=== PATIENT | male | born 1950 | race Caucasian/White ===

== ENCOUNTER 2025-01-02 18:52 | Emergency (ER) | payer MEDICARE, SELFPAY ==
[2025-01-02] VITALS (8 sets, daily range): BP systolic 121–184; BP diastolic 63–99; PULSE 60–89; RESP 14–18; TEMP 34.5–36.4; O2SAT 95–100; BMI 16.2
--- NOTE | 2025-01-02 19:00 | XRR_ITS ---
PROCEDURE INFORMATION: Exam: XR Chest Exam date and time: 01/02/2025 7:47 PM Age: 75 years old Clinical indication: Pain; Chest pressure; Additional info: Chest pain TECHNIQUE: Imaging protocol: Radiologic exam of the chest. Views: 1 view. COMPARISON: No relevant prior studies available. FINDINGS: Lungs: Lungs are hyperinflated. No focal consolidation. Pleural spaces: Unremarkable. No pleural effusion. No pneumothorax. Heart/Mediastinum: Unremarkable. No cardiomegaly. Bones/joints: Unremarkable. XR/XR chest 1V portable [id number] IMPRESSION: No acute cardiopulmonary findings.
--- NOTE | 2025-01-02 19:07 | CTR_ITS ---
PROCEDURE INFORMATION: Exam: CT Head Without Contrast Exam date and time: 01/02/2025 8:44 PM Age: 75 years old Clinical indication: Altered mental status/memory loss; Additional info: Mental status change TECHNIQUE: Imaging protocol: Computed tomography of the head without contrast. Radiation optimization: All CT scans at this facility use at least one of these dose optimization techniques: automated exposure control; mA and/or kV adjustment per patient size (includes targeted exams where dose is matched to clinical indication); or iterative reconstruction. COMPARISON: No relevant prior studies available. RADIATION DOSE METRICS: Total DLP (mGy-cm): 919.5 FINDINGS: Brain: Parenchymal volume loss with scattered white matter hyperintensities consistent with chronic microvascular ischemic changes. No acute intracranial hemorrhage, mass effect or midline shift. Cerebral ventricles: No ventriculomegaly. Paranasal sinuses: Visualized sinuses are unremarkable. No fluid levels. Mastoid air cells: Visualized mastoid air cells are well aerated. Bones: Unremarkable. No acute fracture. Soft tissues: Unremarkable. CT/CT head wo con* [id number] IMPRESSION: No acute intracranial abnormality.
--- NOTE | 2025-01-02 19:41 | ECG_ITS ---
[facility] [employer] Test Date: 2025-01-02 Pat Name: Gilson Marina Department: Room: Gender: Male Deck Scaler: : 1950 Requested By: Dandre Robles Order Number: [id number] Killian MD: Mady Hamilton M.D. Measurements Intervals [place] Rate: 68 P: 0 MT: 0 QRS: 75 QRSD: 112 T: 61 QT: 428 QTc: 457 Interpretive Statements Possible ATRIAL FIBRILLATION WITH ABERRANT CONDUCTION OR VENTRICULAR PREMATURE COMPLEXES MODERATE INTRAVENTRICULAR CONDUCTION DELAY [110+ ms QRS DURATION] MODERATE ST DEPRESSION [0.05+ mV ST DEPRESSION] No previous ECG available for comparison Heavy baseline artifacts; Need to repeat the study. Electronically Signed On 01-03-2025 21:47:53 CDT by Mady Hamilton M.D. [id number]
[2025-01-02 19:49] LABS: ABG PH Result 7.37 (7.35-7.45); Arterial Blood Gas Hematocrit 47.9 % (42-52); Base Excess ABG -1.1 mmol/L (-2.0-2.0); Blood Gas Allen Test Pos; Blood Gas Operator Identificat glc; Blood Gas Sample Site Radial, left; Blood Gas Sample Type Arterial; HCO3 ABG 24.2 mmol/L (22-26); Oxygen Device ROOM AIR; PO2 FiO2 Ratio Arterial Blood 471
[2025-01-02 19:54] LABS: Basophils # 0.1 10^3/uL (0.0-0.1); Basophils % 0.4 %; Eosinophils # 0.1 10^3/uL (0.0-0.8); Eosinophils % 0.7 %; Hematocrit 52.6 % (37-53); Lymphocytes # 1.2 10^3/uL (0.8-4.8); Lymphocytes % 8.2 %; Mean Corpuscular Hemoglobin 29.2 pg (27-33); Mean Corpuscular Volume 94.3 fl (82-101); Mean Platelet Volume 10.3 fL (7.4-10.4); Monocytes # 0.6 10^3/uL (0.2-0.9); Neutrophils # 12.82 10^3/uL (1.8-7.7); Neutrophils % 85.9 %; Nucleated Red Blood Cells % 0 %; Platelet Count 275 10^3/cmm (157-399); Red Blood Count 5.58 10^6/uL (3.85-5.65); Red Cell Distribution Width 13.4 % (12.1-15.1); White Blood Count 14.93 10^3/uL (3.29-11.43)
[2025-01-02 20:07] LABS: Troponin(5th) Baseline 17 ng/L (0-15)
[2025-01-02 20:13] LABS: Ammonia 67 umol/L (16-60)
[2025-01-02 20:15] LABS: Alanine Aminotransferase 16 U/L (0-41); Albumin Level 4.4 g/dL (3.5-5.2); Alkaline Phosphatase 132 U/L (40-130); Blood Urea Nitrogen 16 mg/dL (8-23); Calcium 9.8 mg/dL (8.5-10.5); Carbon Dioxide 21 mmol/L (22-29); Chloride 101 mmol/L (98-107); Creatinine Clr Calc Pharmacy 38.1142; Globulin 3.8 g/dL (1.3-4.6); Glucose 154 mg/dL (65-115); Osmolality Calculated 294 mOsm/kg (285-295); Sodium 140 mmol/L (136-145); Total Bilirubin 0.9 mg/dL (0.15-1.2); Total Protein 8.2 g/dL (6.6-8.7)
[2025-01-02 20:17] LABS: Anion Gap 20.9 (5-19); Aspartate Amino Transferase 27 U/L (0-40)
[2025-01-02 20:19] LABS: Potassium 2.9 mmol/L (3.5-5.1)
[2025-01-02 20:26] LABS: Lactic Sepsis W/Reflex 3.4 mmol/L (0.5-2.2)
[2025-01-02] MEDS: ondansetron 2 mg/ML SDV 2 mL 4 MG IVP (20:30)
--- NOTE | 2025-01-02 20:49 | W.ED.AMS ---
HPI - Altered Mental Status General: Chief Complaint: Altered Mental Status Stated Complaint: Heat Stroke Time Seen by Provider: 01/02/25 19:00 History of Present Illness: Patient is a 75-year-old male brought by ambulance for altered mental status, hypotension, loss of bowel and bladder continence. History provided by people he met yesterday is that he was driving across [place] from [place] to get back to [place] where he lives when his car broke down. Locals took him in and assisted him getting a new starter and getting replaced today. Apparently the patient's manufacturers representative from [place] drove all the way to the patient's location to bring him his medicine including what appears to be a very old bottle of lisinopril and an empty bottle of buprenorphine 2 mg tablets. Shortly after the manufacturers representative visited, patient became altered, near syncopal, and lost control of his bladder and bowel and was unable to get up. EMS was called and they found him to be profoundly hypotensive and altered. He was brought to the emergency department Kay IV fluids. On arrival he is hypothermic at 94.1 degrees. He tells me that he used to have a problem with oxycodone and never wants to use opioids again. I asked him if he felt that the medication he took could have caused his symptoms and he thinks this is possible. He thinks he might have taken too much lisinopril. The bottle of lisinopril shows 30 mg tablets and he is unsure how many he took. There are multicolored pills within the bottle and I am not certain that all of them are lisinopril. He is uncertain how many buprenorphine 2 mg tablets he took but the bottle is empty now. He has not received Narcan. The buprenorphine tablets do not include naloxone. Related Data Allergies Allergy/AdvReac Type Severity Reaction Status Date / Time celecoxib (From Celebrex) Allergy Unknown Verified 01/02/25 19:02 duloxetine (From Cymbalta) Allergy Unknown Verified 01/02/25 19:02 Physical Exam Const: COMMON NORMALS: alert OTHER: No distress HENMT: COMMON NORMALS: normocephalic and atraumatic HEAD & SCALP: normocephalic and atraumatic OTHER: Moist mucous membranes Eye: COMMON NORMALS: Equal, round and reactive pupils present, EOMs intact bilaterally and no scleral icterus PUPIL: Yes Equal, round and reactive pupils present Resp: COMMON NORMALS: normal respiratory effort and No retractions Cardio: COMMON NORMALS: regular rate and No murmurs present (Cardio) RATE: regular rate OTHER: Irregular rhythm, no murmur. GI: COMMON NORMALS: Normal to inspection, nondistended, normoactive bowel sounds present, Soft to palpation and non-tender PALPATION: Yes Soft to palpation Neuro: SENSORIUM/ORIENTATION: Yes alert OTHER: Profoundly weak, no lateralizing deficits of strength or sensation to imply acute stroke. Difficult speech at baseline due to old surgery of the jaw and edentulous status Psych: OTHER: No obvious hallucinations, delusions, HI or SI. Skin: COMMON NORMALS: no rashes or lesions noted GENERAL SKIN EXAM: no rashes or lesions noted Course Vital Signs: Vital signs: Vital Signs Temperature 97.5 F L 01/02/25 20:29 Pulse Rate 81 01/03/25 02:00 Respiratory Rate 18 01/03/25 02:00 Blood Pressure 184/90 01/03/25 02:00 Pulse Oximetry 97 01/03/25 02:00 Oxygen Delivery Me thod Room Air 01/03/25 02:00 MDM - Altered Mental Status Medical Decision Making In summary, patient is a 75-year-old male who appears to have accidentally overdosed on either his lisinopril blood pressure medication or buprenorphine or maybe both. He was found minimally responsive, hypotensive, after losing control of his bowel and bladder. With resuscitation and time, blood pressure has normalized. Lactic acid was initially elevated and I think this is due to global hypoperfusion which was also causing him altered mental status on arrival. He did not receive Narcan. His buprenorphine tablets did not have naloxone in them and the bottle was empty on arrival, raising suspicion that he may have taken what ever was left in the bottle. He stated at one time that he used to have a problem with oxycodone tablets, and that he never wanted to go back to that lifestyle again. Regardless, he was observed overnight With improvement of mental status and vital sigs. I advised that he meet with his primary care physician before resuming any of his medications. He will be discharged in stable and improved condition with follow-up to primary care. Lab Data 01/02/25 19:35 01/02/25 19:35 Radiology Impressions Chest X-Ray 01/02/25 19:00 IMPRESSION: No acute cardiopulmonary findings. Head CT 01/02/25 19:07 IMPRESSION: No acute intracranial abnormality. Laboratory Results WBC 14.93 10^3/uL (3.29-11.43) H 01/02/25 19:35 RBC 5.58 10^6/uL (3.85-5.65) 01/02/25 19:35 Hgb 16.30 g/dL (11.27-16.99) 01/02/25 19:35 Hct 52.6 % (37-53) 01/02/25 19:35 MCV 94.3 fl (82-101) 01/02/25 19:35 MCH 29.2 pg (27-33) 01/02/25 19:35 MCHC 31.0 g/dL (30-55) 01/02/25 19:35 RDW 13.4 % (12.1-15.1) 01/02/25 19:35 Plt Count 275 10^3/cmm (157-399) 01/02/25 19:35 MPV 10.3 fL (7.4-10.4) 01/02/25 19:35 Neut % (Auto) 85.9 % 01/02/25 19:35 Lymph % (Auto) 8.2 % 01/02/25 19:35 [place] % (Auto) 4.0 % 01/02/25 19:35 Eos % (Auto) 0.7 % 01/02/25 19:35 Baso % (Auto) 0.4 % 01/02/25 19:35 Neut # (Auto) 12.82 10^3/uL (1.8-7.7) H 01/02/25 19:35 Lymph # (Auto) 1.2 10^3/uL (0.8-4.8) 01/02/25 19:35 [place] # (Auto) 0.6 10^3/uL (0.2-0.9) 01/02/25 19:35 Eos # (Auto) 0.1 10^3/uL (0.0-0.8) 01/02/25 19:35 Baso # (Auto) 0.1 10^3/uL (0.0-0.1) 01/02/25 19:35 Nucleated RBC % (auto) 0 % 01/02/25 19:35 Nucleated RBCs # 0.0 /100WBC 01/02/25 19:35 Specimen Type Arterial 01/02/25 19:37 Sample Site Radial, left 01/02/25 19:37 ABG pH 7.37 (7.35-7.45) 01/02/25 19:37 ABG pCO2 42.0 mmHg (35-45) 01/02/25 19:37 ABG pO2 99.0 mmHg (80.0-100.0) 01/02/25 19:37 ABG PO2/FiO2 Ratio 471 01/02/25 19:37 ABG HCO3 24.2 mmol/L (22-26) 01/02/25 19:37 ABG Base Excess -1.1 mmol/L (-2.0-2.0) 01/02/25 19:37 [place] Test Pos 01/02/25 19:37 Hematocrit 47.9 % (42-52) 01/02/25 19:37 O2 Delivery Device Room air 01/02/25 19:37 FiO2 21.0 % 01/02/25 19:37 Heat Treat Technician ID glc 01/02/25 19:37 Sodium 140 mmol/L (136-145) 01/02/25 19:35 Potassium 2.9 mmol/L (3.5-5.1) L 01/02/25 19:35 Chloride 101 mmol/L (98-107) 01/02/25 19:35 Carbon Dioxide 21 mmol/L (22-29) L 01/02/25 19:35 Anion Gap 20.9 (5-19) H 01/02/25 19:35 BUN 16 mg/dL (8-23) 01/02/25 19:35 Creatinine 1.2 mg/dL (0.7-1.2) 01/02/25 19:35 GFR Calculation Not Reportable 01/02/25 19:35 Glucose 154 mg/dL (65-115) H 01/02/25 19:35 Calculated Osmolality 294 mOsm/kg (285-295) 01/02/25 19:35 Lactic Acid 3.4 mmol/L (0.5-2.2) H 01/02/25 20:03 Lactic Acid (Sepsis) 1.6 mmol/L (0.5-2.2) 01/02/25 23:11 Calcium 9.8 mg/dL (8.5-10.5) 01/02/25 19:35 Total Bilirubin 0.9 mg/dL (0.15-1.2) 01/02/25 19:35 AST 27 U/L (0-40) 01/02/25 19:35 ALT 16 U/L (0-41) 01/02/25 19:35 Alkaline Phosphatase 132 U/L (40-130) H 01/02/25 19:35 Ammonia 67 umol/L (16-60) H 01/02/25 19:38 Troponin T Baseline 17 ng/L (0-15) H 01/02/25 19:35 Troponin T 120 Minute 17.30 ng/L (0-15) H 01/02/25 21:48 Delta Troponin T 0.30 ABS# (0-10) 01/02/25 21:48 Total Protein 8.2 g/dL (6.6-8.7) 01/02/25 19:35 Albumin 4.4 g/dL (3.5-5.2) 01/02/25 19:35 Globulin 3.8 g/dL (1.3-4.6) 01/02/25 19:35 Urine Color Yellow (Yellow) 01/02/25 21:00 Urine Appearance Turbid (CLEAR) A 01/02/25 21:00 Urine pH 6.5 (5-7) 01/02/25 21:00 Ur Specific [place] 1.012 (1.005-1.030) 01/02/25 21:00 Urine Protein 3+ (Negative) A 01/02/25 21:00 Urine Glucose (UA) Trace (Normal) H 01/02/25 21:00 Urine Ketones Negative (Negative) 01/02/25 21:00 Urine Blood 2+ (Negative) A 01/02/25 21:00 Urine Nitrate Negative (Negative) 01/02/25 21:00 Urine Bilirubin Negative (Negative) 01/02/25 21:00 Urine Urobilinogen 1.0 mg/dL (Negative) 01/02/25 21:00 Ur Leukocyte Esterase Trace (Negative) A 01/02/25 21:00 Urine RBC 51-100 /hpf (0-2) H 01/02/25 21:00 Urine WBC 21-50 /hpf (0-5) H 01/02/25 21:00 Ur Squamous Epith Cells 6-10 /hpf (0-5) 01/02/25 21:00 Amorphous Sediment Not Reportable 01/02/25 21:00 Urine Bacteria None seen /hpf (NONE) 01/02/25 21:00 Hyaline Casts 29.37 /lpf 01/02/25 21:00 Coarse Granular Casts 0-4 /lpf H 01/02/25 21:00 All radiology interpretation(s) finalized by discharge EKG Data EKG 1: Interpretation: Time?1940?sinus rhythm with frequent PVCs, wandering baseline due to motion artifact. No obvious ST segment elevation or depression, no T wave inversions, QTc = 446. Discharge Plan Discharge Patient Disposition: Home Clinical Impression: Accidental overdose Condition: Stable Discharge Orders: Discharge ED (Routine); Ordered 01/03/25 Ordered By: Dandre Tao Discharge Diet: Usual diet Discharge Activity: Increase activity as tolerated Patient Instructions: Altered Mental Status (ED) Activity Restrictions/Additional Instructions: It seems most likely that you accidentally took too much blood pressure medication causing your blood pressure to go very low. Low blood pressure caused you to feel like you are going to pass out and lose control of your bowel and bladder and caused altered mental status. It also caused your temperature to drop. As the medication effect wore off, your blood pressure has risen to a safe level and you are back to your normal self mentally. Your blood tests are improving over time. There is no evidence of other emergency requiring hospitalization. Please stay well-hydrated and do not take your blood pressure medication until you have gotten home and visited with your primary care doctor as it may be unsafe to be taking it at your current dosing. It is acceptable to permit mildly elevated blood pressure readings and preferable to low blood pressure in the short-term. Print Language: Malagasy Coding Level of Care Code ED Cob Sawyer for Bud Angeles
[2025-01-02 21:07] LABS: Bilirubin Urine Negative (Negative); Blood Urine 2+ (Negative); Glucose Urine UA Trace (Normal); Ketones Urine Negative (Negative); Leukocyte Esterase Urine Trace (Negative); Nitrate Urine Negative (Negative); Protein Urine 3+ (Negative); Specific Gravity, Urine 1.012 (1.005-1.030); Urine Appearance Turbid (CLEAR); Urine Color Yellow (Yellow); pH Urine 6.5 (5-7)
[2025-01-02 21:10] LABS: Add Urine Microscopic? YES; Bacteria Urine None Seen /hpf; Hyaline Casts Urine 29.37 /lpf; RBC Urine 51-100 /hpf (0-2); WBC Urine 21-50 /hpf (0-5)
[2025-01-02] MEDS: lidocaine 1% 5 ML in potassium chloride premix 100 ML 52.5 ML IV (21:22)
[2025-01-02] MEDS: sodium chloride 0.9% 1,000 ML 999 ML IV (21:22)
[2025-01-02 21:29] LABS: Add Urine Culture? Yes; Coarse Granular Casts Urine 0-4 /lpf; UA Slide Review UA Slide Review Perf
[2025-01-02 21:53] LABS: Reflex Lactate Order REFLEX LACTIC ORDERD
[2025-01-02 23:44] LABS: Lactic Acid level (Lactate) 1.6 mmol/L (0.5-2.2)
[2025-01-03 00:31] VITALS: BP 176/83; PULSE 77; RESP 18; O2SAT 95
[2025-01-03 02:00] VITALS: BP 184/90; PULSE 81; RESP 18; O2SAT 97
--- NOTE | 2025-01-03 02:06 | PC.NURSE ---
assisted patient to standing position with assist x 2. patient walked a few steps and then stated he was dizzy. we had him sit back on side of bed and patient then stated he needed to lay back down because he felt he was going to pass out. He told us that he would try again in 1 hour.
[2025-01-03 03:00] VITALS: BP 178/108; PULSE 74; RESP 17; O2SAT 98
--- NOTE | 2025-01-03 03:16 | PC.NURSE ---
patient stood and walked approx 25 ft to W/C with no dizziness. Moved him to room 15 to rest and ride will be called at 0600.
[2025-01-03 04:00] VITALS: BP 178/95; PULSE 78; RESP 17; O2SAT 95
[2025-01-03 07:08] VITALS: BP 178/89; PULSE 86; RESP 16; O2SAT 97
== END 2025-01-03 07:09 | disposition home or self-care (01) ==
PROVIDERS: Emergency Provider Student in an Organized Health Care Education/Training Program
DX: T46.4X1A Poisoning by angiotensin-converting-enzyme inhibitors, accidental (unintentional), initial encounter (principal); R41.82 Altered mental status, unspecified; I95.9 Hypotension, unspecified; R32 Unspecified urinary incontinence; R15.9 Full incontinence of feces; Z79.899 Other long term (current) drug therapy
CPT/HCPCS: 36415; 36600; 70450; 71045; 80053; 81001; 82140; 82803; 83605; 84484; 85025; 87040; 87086; 93005; 96365; 96366; 96375; 99285; J2405; J3480; J7030; J9999

== ENCOUNTER 2025-01-04 07:30 | Emergency (ER) | payer MEDICARE, SELFPAY ==
[2025-01-04] VITALS (12 sets, daily range): BP systolic 131–175; BP diastolic 76–94; PULSE 49–99; RESP 16–26; TEMP 36.7; O2SAT 96–99; BMI 16.2
--- NOTE | 2025-01-04 08:27 | W.ED.ABDPA2 ---
HPI - Abdominal Pain General: Chief Complaint: Abdominal Pain Stated Complaint: severe abdominal pain Time Seen by Provider: 01/04/25 07:32 History of Present Illness: 75-year-old male presents emergency room complaining of left lower quadrant abdominal pain. He was seen yesterday is felt to be more of a gastroenteritis he was discharged home he states he continues to have abdominal discomfort has had a little bit of loose stools no hematochezia melena hematemesis cough crams is nausea but no vomiting. Denies any fever sweats chills no dysuria urgency or frequency. Labs reviewed from previous visit on the evening of 01/02/25. Associated Symptoms: Denies chills, dysuria and fever(s) Related Data Home Medications ?Medication ?Instructions ?Recorded ?Confirmed amlodipine 10 mg tablet 10 mg PO DAILY 01/04/25 01/04/25 buprenorphine HCl 2 mg sublingual 6 mg sublingual DAILY 01/04/25 01/04/25 tablet clonidine HCl 0.1 mg tablet See Rx Instructions .Route .COMPLEX 01/04/25 01/04/25 hydrochlorothiazide 25 mg tablet 25 mg PO DAILY 01/04/25 01/04/25 lisinopril 20 mg tablet 20 mg PO DAILY 01/04/25 01/04/25 Allergies Allergy/AdvReac Type Severity Reaction Status Date / Time celecoxib (From Celebrex) Allergy Unknown Verified 01/02/25 19:02 duloxetine (From Cymbalta) Allergy Unknown Verified 01/02/25 19:02 Review of Systems Const: Denies: fever(s) or chills Card: Denies: chest pain Resp: Denies: dyspnea GI: Denies: abdominal pain : Denies: dysuria, urinary frequency or urinary urgency Musc: Denies: neck pain or back pain Skin/Breast: Denies: rash Physical Exam Const: GENERAL APPEARANCE: cooperative ORIENTATION/CONSCIOUSNESS: Yes awake, Yes oriented to person, Yes oriented to place and Yes oriented to time HENMT: COMMON NORMALS: normocephalic, atraumatic and hearing grossly normal bilaterally HEAD & SCALP: normocephalic and atraumatic Resp: COMMON NORMALS: normal respiratory effort, No retractions, No use of accessory muscles and clear to auscultation bilaterally AUSCULTATION: clear to auscultation bilaterally Cardio: COMMON NORMALS: regular rate, regular rhythm and No murmurs present (Cardio) RATE: regular rate RHYTHM: regular rhythm GI: COMMON NORMALS: No hepatosplenomegaly present AUSCULTATION: Yes normoactive bowel sounds PALPATION: Yes Tenderness to palpation present (GI), No Guarding due to palpation present (GI) and Yes No hepatosplenomegaly present Extremity: COMMON NORMALS: normal to inspection, capillary refill normal, no clubbing, cyanosis or edema, no calf tenderness and no pedal edema Neuro: SENSORIUM/ORIENTATION: Yes oriented to person, Yes oriented to place and Yes oriented to time Skin: COMMON NORMALS: no rashes or lesions noted GENERAL SKIN EXAM: no rashes or lesions noted Course Vital Signs: Vital signs: Vital Signs Temperature 98.1 F 01/04/25 07:46 Pulse Rate 88 01/04/25 14:32 Respiratory Rate 19 H 01/04/25 14:30 Blood Pressure 172/84 01/04/25 14:32 Pulse Oximetry 98 01/04/25 14:32 Oxygen Delivery Me thod Room Air 01/04/25 12:30 MDM - Abdominal Pain Medical Decision Making Labs and imaging reviewed. Patient has a colitis on CT. Colitis patient transferred to [facility]. In addition to colitis patient has a 7 x 6 mm left-sided distal ureteral stone with hydronephrosis he will need urology. Dr. Dr. Heath also talk to the hospitalist hospitalist will accept and consult urology Medical Records I reviewed the patient's medical records. Lab Data I reviewed the patient's lab results. 01/04/25 08:30 01/04/25 08:30 Labs/Radiology: Radiology Impressions Abdomen/Pelvis CT 01/04/25 08:28 IMPRESSION: 1. Moderate to severe circumferential wall thickening in the distal transverse, splenic flexure, and descending colonic segments. This is compatible with a nonspecific colitis. While this could be infectious or inflammatory, this is a common location for ischemic colitis. Correlate with clinical and laboratory findings. 2. Prominence of the common and central intrahepatic bile ducts is likely compensatory to cholecystectomy. Punctate bilateral nonobstructing renal calculi. 3. 7 x 6 mm distal left sided ureteral stone. Mild hydroureteronephrosis. 4. Mild ascites. ADDENDUM: 01/04/25 0959 THIS REPORT CONTAINS FINDINGS THAT MAY BE CRITICAL TO PATIENT CARE. The findings were verbally communicated via telephone conference at 9:58 AM DWAYNET on 01/04/2025 with YOUNG FRANCISCO. The findings were acknowledged and understood. Laboratory Results WBC 15.33 10^3/uL (3.29-11.43) H 01/04/25 08:30 RBC 4.56 10^6/uL (3.85-5.65) 01/04/25 08:30 Hgb 13.60 g/dL (11.27-16.99) 01/04/25 08:30 Hct 42.0 % (37-53) 01/04/25 08:30 MCV 92.1 fl (82-101) 01/04/25 08:30 MCH 29.8 pg (27-33) 01/04/25 08:30 MCHC 32.4 g/dL (30-55) 01/04/25 08:30 RDW 13.9 % (12.1-15.1) 01/04/25 08:30 Plt Count 221 10^3/cmm (157-399) 01/04/25 08:30 MPV 10.3 fL (7.4-10.4) 01/04/25 08:30 Neut % (Auto) 90.8 % 01/04/25 08:30 Lymph % (Auto) 3.3 % 01/04/25 08:30 [place] % (Auto) 4.8 % 01/04/25 08:30 Eos % (Auto) 0.1 % 01/04/25 08:30 Baso % (Auto) 0.2 % 01/04/25 08:30 Neut # (Auto) 13.92 10^3/uL (1.8-7.7) H 01/04/25 08:30 Lymph # (Auto) 0.5 10^3/uL (0.8-4.8) L 01/04/25 08:30 [place] # (Auto) 0.7 10^3/uL (0.2-0.9) 01/04/25 08:30 Eos # (Auto) 0.0 10^3/uL (0.0-0.8) 01/04/25 08:30 Baso # (Auto) 0.0 10^3/uL (0.0-0.1) 01/04/25 08:30 Nucleated RBC % (auto) 0 % 01/04/25 08:30 Nucleated RBCs # 0.0 /100WBC 01/04/25 08:30 Sodium 138 mmol/L (136-145) 01/04/25 08:30 Potassium 4.3 mmol/L (3.5-5.1) 01/04/25 08:30 Chloride 98 mmol/L (98-107) 01/04/25 08:30 Carbon Dioxide 26 mmol/L (22-29) 01/04/25 08:30 Anion Gap 18.3 (5-19) 01/04/25 08:30 BUN 24 mg/dL (8-23) H 01/04/25 08:30 Creatinine 0.9 mg/dL (0.7-1.2) 01/04/25 08:30 GFR Calculation Not Reportable 01/04/25 08:30 Glucose 116 mg/dL (65-115) H 01/04/25 08:30 Calculated Osmolality 291 mOsm/kg (285-295) 01/04/25 08:30 Lactic Acid 1.7 mmol/L (0.5-2.2) 01/04/25 08:30 Calcium 8.9 mg/dL (8.5-10.5) 01/04/25 08:30 Total Bilirubin 1.6 mg/dL (0.15-1.2) H 01/04/25 08:30 AST 22 U/L (0-40) 01/04/25 08:30 ALT 11 U/L (0-41) 01/04/25 08:30 Alkaline Phosphatase 94 U/L (40-130) 01/04/25 08:30 Total Protein 6.9 g/dL (6.6-8.7) 01/04/25 08:30 Albumin 3.6 g/dL (3.5-5.2) 01/04/25 08:30 Globulin 3.3 g/dL (1.3-4.6) 01/04/25 08:30 Lipase 9 U/L (13-60) L 01/04/25 08:30 Urine Color [place] (Yellow) A 01/04/25 09:06 Urine Appearance Clear (CLEAR) 01/04/25 09:06 Urine pH 5.5 (5-7) 01/04/25 09:06 Ur Specific [place] 1.024 (1.005-1.030) 06/12/25 09:06 Urine Protein 2+ (Negative) A 01/04/25 09:06 Urine Glucose (UA) Negative (Normal) 01/04/25 09:06 Urine Ketones 2+ (Negative) H 01/04/25 09:06 Urine Blood 3+ (Negative) A 01/04/25 09:06 Urine Nitrate Negative (Negative) 01/04/25 09:06 Urine Bilirubin Negative (Negative) 01/04/25 09:06 Urine Urobilinogen 1.0 mg/dL (Negative) 01/04/25 09:06 Ur Leukocyte Esterase 1+ (Negative) A 01/04/25 09:06 Urine RBC 51-100 /hpf (0-2) H 01/04/25 09:06 Urine WBC 21-50 /hpf (0-5) H 01/04/25 09:06 Ur Squamous Epith Cells 0-5 /hpf (0-5) 01/04/25 09:06 Amorphous Sediment Not Reportable 01/04/25 09:06 Urine Bacteria None seen /hpf (NONE) 01/04/25 09:06 Hyaline Casts 4.11 /lpf 01/04/25 09:06 All radiology interpretation(s) finalized by discharge Discharge Plan Discharge Patient Disposition: Xfer Short-Term Hosp Clinical Impression: Colitis, Left nephrolithiasis Condition: Stable Print Language: Sammarinese Coding Level of Care Code ED Sheet Metal Layout Mechanic for Bud Angeles
--- NOTE | 2025-01-04 08:28 | CTR_ITS ---
PROCEDURE INFORMATION: Exam: CT Abdomen And Pelvis With Contrast Exam date and time: 01/04/2025 9:18 AM Age: 75 years old Clinical indication: Abdominal pain; Generalized; Additional info: Abd pain TECHNIQUE: Imaging protocol: Computed tomography of the abdomen and pelvis with contrast. Radiation optimization: All CT scans at this facility use at least one of these dose optimization techniques: automated exposure control; mA and/or kV adjustment per patient size (includes targeted exams where dose is matched to clinical indication); or iterative reconstruction. Contrast material: OMNI 350; Contrast volume: 100 ml; Contrast route: INTRAVENOUS (IV); COMPARISON: CR (CHEST, ) 01/02/2025 7:47 PM RADIATION DOSE METRICS: Total DLP (mGy-cm): 296 FINDINGS: Liver: Normal. No mass. Gallbladder and biliary ducts: Status post cholecystectomy. No evidence of significant biliary obstruction. Prominence of the common and central intrahepatic bile ducts is likely compensatory to cholecystectomy. Punctate bilateral nonobstructing renal calculi. Pancreas: Normal. No ductal dilation. Spleen: Normal. No splenomegaly. Adrenal glands: Normal. No mass. Kidneys and ureters: 7 x 6 mm distal left sided ureteral stone. Mild hydroureteronephrosis. Stomach and bowel: Moderate to severe circumferential wall thickening in the distal transverse, splenic flexure, and descending colonic segments. Bowel has normal caliber. No pneumatosis. Appendix: No evidence of appendicitis. Intraperitoneal space: Mild ascites. Vasculature: Aortoiliac atherosclerotic disease is seen without evidence of aneurysm. Lymph nodes: Unremarkable. No enlarged lymph nodes. Urinary bladder: Unremarkable as visualized. Reproductive: Unremarkable as visualized. Bones/joints: Unremarkable. No acute fracture. Soft tissues: Unremarkable. CT/CT abdomen pelvis w con* [id number] IMPRESSION: 1. Moderate to severe circumferential wall thickening in the distal transverse, splenic flexure, and descending colonic segments. This is compatible with a nonspecific colitis. While this could be infectious or inflammatory, this is a common location for ischemic colitis. Correlate with clinical and laboratory findings. 2. Prominence of the common and central intrahepatic bile ducts is likely compensatory to cholecystectomy. Punctate bilateral nonobstructing renal calculi. 3. 7 x 6 mm distal left sided ureteral stone. Mild hydroureteronephrosis. 4. Mild ascites.
--- NOTE | 2025-01-04 08:34 | ECG_ITS ---
[facility] Test Date: 2025-01-04 Pat Name: Gilson Marina Department: Room: Gender: Male International Tax Manager: : 1950 Requested By: Seymour Rankin Order Number: [id number] Constantin MD: William Balderas M.D. Measurements Intervals [place] Rate: 67 P: 0 SD: 0 QRS: 78 QRSD: 91 T: 78 QT: 424 QTc: 450 Interpretive Statements SINUS RHYTHM WITH PVCs Compared to ECG 01/02/2025 19:41:52 Intraventricular conduction delay no longer present ST (T wave) deviation no longer present Electronically Signed On 01-05-2025 14:58:56 CDT by William Balderas M.D. [email or web address]
[2025-01-04] MEDS: sodium chloride 0.9% 1,000 ML 999 ML IV (08:35)
[2025-01-04 08:37] LABS: Basophils % 0.2 %; Eosinophils % 0.1 %; Lymphocytes # 0.5 10^3/uL (0.8-4.8); Lymphocytes % 3.3 %; Mean Corpuscular HGB Conc 32.4 g/dL (30-55); Mean Corpuscular Hemoglobin 29.8 pg (27-33); Mean Corpuscular Volume 92.1 fl (82-101); Mean Platelet Volume 10.3 fL (7.4-10.4); Monocytes # 0.7 10^3/uL (0.2-0.9); Monocytes % 4.8 %; Neutrophils # 13.92 10^3/uL (1.8-7.7); Neutrophils % 90.8 %; Nucleated Red Blood Cells % 0 %; Platelet Count 221 10^3/cmm (157-399); Red Blood Count 4.56 10^6/uL (3.85-5.65); Red Cell Distribution Width 13.9 % (12.1-15.1); White Blood Count 15.33 10^3/uL (3.29-11.43)
[2025-01-04 08:54] LABS: Lactic Sepsis W/Reflex 1.7 mmol/L (0.5-2.2)
[2025-01-04 08:55] LABS: Alanine Aminotransferase 11 U/L (0-41); Albumin Level 3.6 g/dL (3.5-5.2); Alkaline Phosphatase 94 U/L (40-130); Anion Gap 18.3 (5-19); Aspartate Amino Transferase 22 U/L (0-40); Blood Urea Nitrogen 24 mg/dL (8-23); Calcium 8.9 mg/dL (8.5-10.5); Carbon Dioxide 26 mmol/L (22-29); Chloride 98 mmol/L (98-107); Globulin 3.3 g/dL (1.3-4.6); Glucose 116 mg/dL (65-115); Lipase 9 U/L (13-60); Osmolality Calculated 291 mOsm/kg (285-295); Potassium 4.3 mmol/L (3.5-5.1); Sodium 138 mmol/L (136-145); Total Bilirubin 1.6 mg/dL (0.15-1.2); Total Protein 6.9 g/dL (6.6-8.7)
--- NOTE | 2025-01-04 09:16 | PC.PHAR ---
Pt states he no longer takes Amlodipine 10mg daily last fill 10/26/24 90ds or Hydrochlorothiazide 25mg daily last fill 10/26/24 90ds. Both are from Mail order pharmacy [facility].
[2025-01-04] MEDS: iohexol 350 mg/mL 500 mL Btl (per mL) IV (09:20)
[2025-01-04 09:21] LABS: Bilirubin Urine Negative (Negative); Blood Urine 3+ (Negative); Glucose Urine UA Negative (Normal); Ketones Urine 2+ (Negative); Leukocyte Esterase Urine 1+ (Negative); Nitrate Urine Negative (Negative); Protein Urine 2+ (Negative); Specific Gravity, Urine 1.024 (1.005-1.030); Urine Appearance Clear (CLEAR); pH Urine 5.5 (5-7)
[2025-01-04 09:23] LABS: Add Urine Microscopic? YES; Bacteria Urine None Seen /hpf; Hyaline Casts Urine 4.11 /lpf; RBC Urine 51-100 /hpf (0-2); Squamous Epithelial Cell Urine 0-5 /hpf (0-5); WBC Urine 21-50 /hpf (0-5)
[2025-01-04 09:46] LABS: Urine Color Orange (Yellow)
[2025-01-04 09:47] LABS: Add Urine Culture? Yes; UA Slide Review UA Slide Review Perf
--- NOTE | 2025-01-04 10:03 | PC.NURSE ---
LAB NOTIFIED OF BLOOD CULTURES NEEDING TO BE DRAWN. ANTIBIOTIC HELD UNTIL BLOOD CULTURES DRAWN.
--- NOTE | 2025-01-04 10:34 | ECG_ITS ---
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 Measurements Intervals [place] Rate: 70 P: 86 OK: 144 QRS: 79 QRSD: 97 T: 77 QT: 432 QTc: 469 Interpretive Statements SINUS RHYTHM Compared to ECG 01/04/2025 08:34:36 No significant changes Electronically Signed On [email or web address] 14:58:15 CDT by William Balderas M.D. [email or web address]
[2025-01-04] MEDS: morphine 4 mg/mL SDV 1 mL IVP ×2 (10:37→14:22)
[2025-01-04] MEDS: piperacillin-tazobactam 3.375 GM in sodium chloride 0.9% (plus) 50 ML IV (10:38)
== END 2025-01-04 14:39 | disposition short-term general hospital (02) ==
PROVIDERS: Emergency Provider Family Medicine
DX: K52.9 Noninfective gastroenteritis and colitis, unspecified (principal); N20.0 Calculus of kidney; Z79.899 Other long term (current) drug therapy
CPT/HCPCS: 36415; 74177; 80053; 81001; 83605; 83690; 85025; 87040; 87086; 93005; 96365; 96366; 96375; 96376; 99285; J2270; J2543; J7030